=== PATIENT | female | born 1985 | race Caucasian/White ===

== ENCOUNTER 2021-06-29 01:55 | Emergency (ER) | payer MEDICAID ==
[~2021-06-29] VITALS: Ht 157 cm; Wt 57.6 kg
--- OUTSIDE RECORDS SUMMARY | 2021-06-29 02:06 | XMS REPORT | Clinical Summary ---
Author Author [facility] Organization [facility] Address Unknown Phone Unavailable Care Team Providers Care Senior Escrow Officer Name Role Phone PCP Unavailable Allergies Comments Active Allergy Reactions Severity Noted Date Tetracyclines Throat edema High 08/17/2017 Medications End Date Status Medication Sig Dispensed Refills Start Date Active carvedilol (COREG) 12.5 Take 3.125 mg 0 MG tabletIndications: by mouth 2 Takes 3.125mg BID (two) times a day with meals. Active aspirin 81 MG EC Take 81 mg by 0 tabletIndications: mouth daily. myocardial reinfarction prevention Active multivitamin Take 1 tablet 0 with minerals () by mouth 27 mg iron- 800 mcg daily. tabletIndications: Active Problems Not on file Social History Date Tobacco Use Types Packs/Day Years Used Current Every Day Smoker Electronic Cigarettes Smokeless Tobacco: Never Used Comments Alcohol Use Standard Drinks/Week No 0 (1 standard drink = 0.6 o z pure alcohol) Sex Assigned at Date Recorded Not on file Last Filed Vital Signs Reading Time Taken Comments Vital Sign 96/53 08/17/2017 1:31 PM YARN WRAPPER Blood Pressure 81 08/17/2017 4:06 PM YARN WRAPPER Pulse - - Temperature - - Respiratory Rate 95% 08/17/2017 4:06 PM YARN WRAPPER Oxygen Saturation - - Inhaled Oxygen Concentration 65.8 kg (145 lb) 08/17/2017 12:16 PM YARN WRAPPER Weight 158.8 cm (5' 2.5") 08/17/2017 12:13 PM YARN WRAPPER Height 26.1 08/17/2017 12:13 PM YARN WRAPPER Body Mass Index Plan of Treatment Not on file Results Not on filefrom Last 3 Months Insurance Type Payer Benefit Subscriber ID Effective Phone Address Plan / Dates Group MEDICAID MANAGED CARE [employer] [id number] ([place]) STATE -[facility] Areli Esteban Personal/F Self [birth year] [address] (Home) [place] [address] Areli Esteban Personal/F Self [birth year] [address] [place] (Home) [place] [address] Advance Directives For more information, please contact: [phone] 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
--- NOTE | 2021-06-29 02:35 | ED Back Pain ---
General Chief Complaint: Back Problems Stated Complaint: LEFT SIDE OF BACK LOCKED UP Nursing Triage Note: PT PRESENTS TO THE ED C/O L SIDED FLANK/BACK PAIN THAT HAS BEEN OCCURRING TOWARDS THE END OF HER WORK SHIFTS FOR THE LAST FEW NIGHTS. PT STATES IT IS SO DEBILITATING THAT IT AFFECTS HER BALANCE WHEN IT OCCURS. PT HAS A TRAUMATIC BACK FX HX FROM 2001. ALSO HAS KIDNEY STONE HX BUT THIS PAIN DOES NOT FEEL LIKE PREVIOUS STONES Source of Information: Patient Exam Limitations: No Limitations (YOGI KENNEDY STUDENT) History of Present Illness Date Seen by Provider: Jun 29, 2021 Time Seen by Provider: 02:09 Initial Comments This is Areli a 36 yo female that presented to the ED via private vehicle with the chief complaint of lower left sided back pain. She described the pain intense and sharp as if her muscles lock up momentarily causing her to lose function of her left leg. This causes her to fall but she states that her leg "unlocks" and she is able to catch herself. In these moments she describes the pain as a 10/10. 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 These symptoms have occurs for the last 3-4 weeks and have not increased or decreased in frequency or intensity over that time. She stated that she has tried to hide the symptoms from her employer/ fellow employees for fear of losing her job. PMH is significant for a broken back at the levels of L4,L5, and S1 back in 2001 while living in [place]. Pt states that she did PT and trigger point injections but denies back surgery. Pt denies any proceeding trauma or falls. She takes ibuprofen 800mg 3-4 times per day for carpal tunnel syndrome. Location: Lumbar Spine, Other (superior SI joint) Timing/Duration: Constant, Other (3-4 weeks) Severity: Severe Pain/Injury Location: Back, Lower Extremity (lose mobility of left leg) Radiation: Other (to vertebral level) Method of Injury: Unknown Modifying Factors: Improves With Immobilization; Worse With Movement; Improves With Rest Associated Symptoms: muscle spasms, weakness, lower back pain; No loss of bladder control, No loss of bowel control (YOGI KENNEDY MED STUDENT) Allergies and Home Medications Allergies Coded Allergies: codeine (Verified Allergy, Unknown, 06/29/21) hydrocodone (Verified Allergy, Unknown, 06/29/21) latex (Verified Allergy, Unknown, 06/29/21) tetracycline (Verified Allergy, Unknown, 06/29/21) Patient Home Medication List Home Medication List Reviewed: Yes (WALT OROSCO MD) Prednisone (Prednisone) 20 Mg Tab, 40 MG PO DAILY Prescribed by: WALT UMANA on 06/29/21 0306 Review of Systems Constitutional: no symptoms reported EENTM: no symptoms reported Respiratory: no symptoms reported Cardiovascular: no symptoms reported Gastrointestinal: no symptoms reported Genitourinary: no symptoms reported Musculoskeletal: back pain, joint pain, muscle stiffness, muscle weakness (during episodes lasting about 30 seconds) Skin: no symptoms reported Psychiatric/Neurological: No Symptoms Reported (YOGI KENNEDY) Past Qzutwnb-Acrljm-Vgvexa Hx Patient Social History Tobacco Use?: Yes Smoking Status: Former Smoker Use of E-Cig and/or Vaping dev: Yes Substance use?: No Alcohol Use?: No (YOGI KENNEDY) Immunizations Up To Date Influenza Vaccine Up-to-Date: Yes; Up-to-Date (YOGI KENNEDY) Past Medical History Surgery/Hospitalization HX: BACK FX HX. Cardiac Musculoskeletal: Yes Back Injury (YOGI KENNEDY) Physical Exam Vital Signs Vital Signs - First Documented 06/29/21 02:05 Temp 36.5 Pulse 96 Resp 20 B/P (MAP) 137/102 (114) Pulse Ox 99 O2 Delivery Room Air (WALT OROSCO MD) Vital Signs Capillary Refill : Less Than 3 Seconds (YOGI KENNEDY) Height, Weight, BMI Height: '" Weight: lbs. oz. kg; 23.00 BMI Method: General Appearance: WD/WN, Mild Distress HEENT: PERRL/EOMI Neck: Full Range of Motion, Normal Inspection, Non Tender, Supple Cardiovascular: Regular Rate, Rhythm, No Edema, No Gallop, No Murmur, Normal Peripheral Pulses Respiratory: Chest Non Tender, Lungs Clear, Normal Breath Sounds, No Accessory Muscle Use, No Respiratory Distress Gastrointestinal: Non Tender, Soft Back: CVA Tenderness (L), Vertebral Tenderness, Other (SI tenderness) Extremity: Normal Inspection, Non Tender, No Calf Tenderness, No Pedal Edema Neurologic/Psychiatric: Alert, Oriented x3, No Motor/Sensory Deficits, Normal Mood/Affect Skin: Normal Color, Warm/Dry (YOGI KENNEDY MED STUDENT) Progress/Results/Core Measures Results/Orders My Orders Orders - WALT OROSCO MD Prednisone Tablet (Deltasone Tablet) (06/29/21 03:00) (WALT OROSCO MD) Medications Given in ED Current Medications Medications Dose Ordered Sig/Shara Route Start Time Stop Time Status Last Admin Dose Admin Prednisone 40 mg ONCE ONCE PO 06/29/21 03:00 06/29/21 03:03 DC 06/29/21 03:09 40 MG (WALT OROSCO MD) Vital Signs/I&O 06/29/21 06/29/21 02:05 03:11 Temp 36.5 36.5 Pulse 96 96 Resp 20 20 B/P (MAP) 137/102 (114) 137/102 Pulse Ox 99 99 O2 Delivery Room Air Room Air (WALT OROSCO MD) Blood Pressure Mean: 114 Departure Impression Primary Impression: Lumbar radiculopathy Additional Impression: Sacroiliitis Disposition: 01 HOME, SELF-CARE Condition: Stable Departure-Patient Inst. Decision time for Depature: 03:04 (WALT OROSCO MD) Referrals: [facility] (PCP/Family) Primary Care Physician Patient Instructions: Sacroiliac Joint Pain, Radiculopathy Add. Discharge Instructions: Follow-up with your primary care provider soon as possible. Explore options for imaging such as MRI of your lumbar spine. You may continue taking ibuprofen up to 600 mg every 6 hours as needed and/or Tylenol (acetaminophen) up to 1000 mg every 6 hours as needed. Use your prednisone steroids as prescribed. Try to take them early in your waking hours each day with food or milk. This will help reduce sleep disturbance or stomach upset. Return to the emergency room if you have worsening symptoms, especially if you develop true weakness in your legs, groin numbness, or bowel or bladder function problems. Call if you have questions or concerns. All discharge instructions reviewed with patient and/or family. Voiced understanding. Scripts Prednisone (Prednisone) 20 Mg Tab 40 MG PO DAILY, #8 TAB 0 Refills Prov: WALT OROSCO MD 06/29/21 Medical Student Attestation and Attending Note: I have personally interviewed and examined this patient along with Yogi York, MS4. I have reviewed student documentation including history, physical, and assessments. I agree with the documentation except where otherwise noted. Exam: General: Alert, oriented, no acute distress, well developed HEENT: Normocephalic and atraumatic Heart: Regular rate and rhythm without murmur Lungs: Clear to auscultation bilaterally with normal effort Abdomen: Soft, nontender, nondistended, normal bowel sounds Back: Maximal point tenderness along the superior aspect of left SI joint. Neuropsych: Alert, oriented, no focal deficits Skin: Warm and dry without rashes Patient was offered prednisone therapy which she accepted. I have recommended that she follow-up with her primary care provider to discuss further work-up and treatment which might include MRI of the lumbar spine, especially since she has prior trauma in that region. (WALT OROSCO MD) Copy Copies To 1: JACKIE MCKEON DYLAN MED STUDENT Jun 29, 2021 02:35 WALT OROSCO MD Jun 29, 2021 03:07
[2021-06-29] MEDS ORDERED: predniSONE 20 MG TAB PO ONE (03:00)
[2021-06-29] MEDS ORDERED: PRD20T PO (03:06)
[2021-06-29 03:11] VITALS: BP 137/102
== END 2021-06-29 03:11 | disposition home or self-care (01) ==
LOC: ER 02:02
DX: M54.16 Radiculopathy, lumbar region (principal); M46.1 Sacroiliitis, not elsewhere classified; Z87.891 Personal history of nicotine dependence
CPT/HCPCS: 99283

== ENCOUNTER 2022-02-01 13:13 | Emergency (ER) | payer MEDICAID ==
[~2022-02-01] VITALS: Ht 157.5 cm; Wt 58.1 kg
[~2022-02-01 13:13] MED LIST: PRD20T PO
--- NOTE | 2022-02-01 13:38 | ED Upper Extremity ---
General Stated Complaint: RT FINGER INJ Source: patient Exam Limitations: no limitations History of Present Illness Date Seen by Provider: February 01, 2022 Time Seen by Provider: 13:18 Initial Comments Patient to the ER by private conveyance with her son and chief complaint that 3 days ago she jammed her finger third digit on her right hand while roughhousing with her child. She says has been using ice and ibuprofen and now has 8 out of 10 pain and swelling in her third finger middle interphalangeal joint. No loss of sensation. No previous fracture or injury. No surgeries on her hand. Allergies and Home Medications Allergies Coded Allergies: codeine (Verified Allergy, Unknown, 06/29/21) hydrocodone (Verified Allergy, Unknown, 06/29/21) latex (Verified Allergy, Unknown, 06/29/21) tetracycline (Verified Allergy, Unknown, 06/29/21) Patient Home Medication List Home Medication List Reviewed: Yes Prednisone (Prednisone) 20 Mg Tab, 40 MG PO DAILY Prescribed by: WALT UMANA on 06/29/21 0306 Review of Systems Constitutional: No chills, No diaphoresis EENTM: No ear discharge, No ear pain Respiratory: No cough, No short of breath Cardiovascular: No edema, No palpitations All Other Systems Reviewed Negative Unless Noted: Yes Past Wdpfpvl-Zutspo-Bpzxgv Hx Patient Social History Tobacco Use?: Yes Tobacco type used: Cigarettes Use of E-Cig and/or Vaping dev: No Substance use?: No Past Medical History Surgery/Hospitalization HX: BACK FX HX. Cardiac Musculoskeletal: Yes Back Injury Physical Exam Vital Signs Vital Signs - First Documented 02/01/22 13:20 Temp 36.4 Pulse 78 Resp 19 B/P (MAP) 120/102 (108) O2 Delivery Room Air Capillary Refill : Height, Weight, BMI Height: '" Weight: lbs. oz. kg; 23.00 BMI Method: General Appearance: WD/WN, no apparent distress HEENT: PERRL/EOMI, pharynx normal Cardiovascular: normal peripheral pulses, regular rate, rhythm Respiratory: no respiratory distress, no accessory muscle use Wrist: Yes normal inspection, Yes non-tender, Yes no evidence of injury, Yes normal ROM Hand: Right, swelling (Middle interphalangeal joint has some swelling on the right hand, third digit with limited flexion and nearly complete extension. No crepitus palpable. No other deformity noted. No tenderness to the metacarpals or other digits) Progress/Results/Core Measures Results/Orders My Orders Orders - BRAYDEN JOHNSTON Hand 3 View Right (02/01/22 13:22) Vital Signs/I&O 02/01/22 13:20 Temp 36.4 Pulse 78 Resp 19 B/P (MAP) 120/102 (108) O2 Delivery Room Air Progress Progress Note : Time: 13:27 Progress Note Jammed finger versus fracture versus sprain/strain of the MIP joint. Plain films. Diagnostic Imaging Diagonstic Imaging: Xray Plain Films/CT/US/NM/MRI: other (finger) Comments [facility] [place], [place] NAME: MASOOD CASTILLO [facility] REC#: [id number] PT STATUS: REG ER : 1985 PHYSICIAN: BRAYDEN JOHNSTON MD ADMIT DATE: 02/01/22/ER FS Draft Date of Exam:02/01/22 HAND 3 VIEW RIGHT HISTORY: Right hand injury, 3rd proximal interphalangeal joint swelling, trauma. COMPARISON: None TECHNIQUE: 3 views of the right hand FINDINGS: There is subtle linear lucency at the right 3rd finger middle phalangeal base which is seen in the lateral view only. This could represent a nondisplaced fracture. There is surrounding soft tissue swelling. Alignment otherwise appears normal and no other fractures are seen. Joint spaces are generally preserved. IMPRESSION:. Subtle linear lucency at the right 3rd finger middle phalangeal base may represent a nondisplaced fracture. Dictated on workstation # [id number] Dict: 02/01/22 1347 Trans: 02/01/22 1349 [facility] [id number] Interpreted by: TAPAN CANALES MD Electronically signed by: Reviewed: Reviewed by Me Departure Impression Primary Impression: Jammed interphalangeal joint of finger of right hand Qualified Codes: S69.91XA - Unspecified injury of right wrist, hand and finger(s), initial encounter Additional Impression: Finger fracture, right Qualified Codes: S62.652A - Nondisplaced fracture of middle phalanx of right middle finger, initial encounter for closed fracture Disposition: 01 HOME, SELF-CARE Condition: Stable Departure-Patient Inst. Decision time for Depature: 13:40 Referrals: [facility] (PCP) Primary Care Physician MARY WARREN DO Patient Instructions: Jammed Finger (DC), Finger Fracture (DC) Add. Discharge Instructions: Heat and topical creams can be helpful for pain relief. Feroz tape your injured finger to the fingers next to it to help splint the finger for the next week or 2. Tylenol 1000 mg every 8 hours as needed for pain. Ibuprofen 800 mg every 8 hours needed for pain. Follow-up with Dr. WARREN, hand surgeon or follow-up with your primary doctor if you are having significant pain or still unable to bend or straighten your finger completely in 1 to 2 weeks. Work/School Note: Work Release Form Date Seen in the Emergency Department: January 31, 2022 Return to Work: February 02, 2022 Restrictions: Need Release from Doctor Other Restrictions Listed Below: Limit use of the fingers of the right hand until 02/13/2022. Copy Copies To 1: [facility]ARREN [facility] February 01, 2022 13:37
--- NOTE | 2022-02-01 13:50 | Diagnostic Imaging Report ---
HISTORY: Right hand injury, 3rd proximal interphalangeal joint swelling, trauma. COMPARISON: None TECHNIQUE: 3 views of the right hand FINDINGS: There is subtle linear lucency at the right 3rd finger middle phalangeal base which is seen in the lateral view only. This could represent a nondisplaced fracture. There is surrounding soft tissue swelling. Alignment otherwise appears normal and no other fractures are seen. Joint spaces are generally preserved. IMPRESSION:. Subtle linear lucency at the right 3rd finger middle phalangeal base may represent a nondisplaced fracture. Dictated by: Dictated on workstation # [id number]
[2022-02-01 14:06] VITALS: BP 136/76
== END 2022-02-01 14:06 | disposition home or self-care (01) ==
LOC: EDUNIT# 13:13 → ER FS 13:14
DX: S62.652A Nondisplaced fracture of middle phalanx of right middle finger, initial encounter for closed fracture (principal); Z87.81 Personal history of (healed) traumatic fracture; X58.XXXA Exposure to other specified factors, initial encounter; Y93.83 Activity, rough housing and horseplay
CPT/HCPCS: 73130

== ENCOUNTER 2022-03-23 19:45 | Emergency (ER) | payer MEDICAID ==
[~2022-03-23] VITALS: Ht 157.4 cm; Wt 57.1 kg
[2022-03-23 19:46] VITALS: BP 130/83
--- NOTE | 2022-03-23 20:04 | ED Upper Extremity ---
General Chief Complaint: Upper Extremity Stated Complaint: R MIDDLE FINGER PAIN Nursing Triage Note: Patient states that she had previously broken her right middle finger. Patient states she hit it on a cart and reinjured it last night. Patient has swelling to the right middle finger. History of Present Illness Date Seen by Provider: Mar 23, 2022 Time Seen by Provider: 20:04 Initial Comments 37-year-old female presents with injury to her the proximal aspect of the right middle finger. Patient reports that she hit somehow on a cart last night and reinjured it. She has some swelling to the proximal portion of it and the concern she may have rebroken it. She reports that she had previously broken it and wanted to have it reevaluated. She has full but painful range of motion. She has no other injuries Allergies and Home Medications Allergies Coded Allergies: codeine (Verified Allergy, Unknown, 06/29/21) hydrocodone (Verified Allergy, Unknown, 06/29/21) latex (Verified Allergy, Unknown, 06/29/21) tetracycline (Verified Allergy, Unknown, 06/29/21) Patient Home Medication List Home Medication List Reviewed: Yes Prednisone (Prednisone) 20 Mg Tab, 40 MG PO DAILY Prescribed by: WALT UMANA on 06/29/21 0306 Review of Systems Constitutional: No chills, No fever Respiratory: no symptoms reported Cardiovascular: no symptoms reported Gastrointestinal: no symptoms reported Genitourinary: no symptoms reported Musculoskeletal: see HPI Skin: see HPI Psychiatric/Neurological: No Symptoms Reported Past Rgtyguf-Khhetp-Euqsdc Hx Patient Social History Tobacco Use?: No Use of E-Cig and/or Vaping dev: Yes E-Cig or Vaping type used: Nicotine Use of E-Cig and/or Vaping Chris: Current Everyday User Substance use?: No Alcohol Use?: No Pt feels they are or have been: No Past Medical History Surgery/Hospitalization HX: BACK FX HX. Cardiac Musculoskeletal: Yes Back Injury Physical Exam Vital Signs Vital Signs - First Documented 03/23/22 19:46 Temp 37.0 Pulse 56 Resp 16 B/P (MAP) 130/83 (99) Pulse Ox 100 O2 Delivery Room Air Capillary Refill : Less Than 3 Seconds Height, Weight, BMI Height: '" Weight: lbs. oz. kg; 23.00 BMI Method: General Appearance: WD/WN, no apparent distress Cardiovascular: normal peripheral pulses, regular rate, rhythm Respiratory: chest non-tender, lungs clear Gastrointestinal: No distended Shoulder: normal inspection Elbow/Forearm: normal inspection Wrist: Yes normal inspection Hand: Right, soft tissue tenderness, swelling (Proximal aspect right middle finger) Neurologic/Tendon: normal sensation Neurologic/Psychiatric: alert, normal mood/affect, oriented x 3 Skin: tattoos/piercings Progress/Results/Core Measures Results/Orders My Orders Orders - JACKSON HORAN DO Finger(S) (03/23/22 19:51) Vital Signs/I&O 03/23/22 19:46 Temp 37.0 Pulse 56 Resp 16 B/P (MAP) 130/83 (99) Pulse Ox 100 O2 Delivery Room Air Blood Pressure Mean: 99 Progress Progress Note : Progress Note Patient with no acute fracture noted on x-ray. Discussed with her supportive care. Patient stable and discharged home Diagnostic Imaging Diagonstic Imaging: Xray Plain Films/CT/US/NM/MRI: other (Right hand) Comments No acute fracture or dislocation noted Departure Impression Primary Impression: Contusion of finger of right hand Qualified Codes: S60.031A - Contusion of right middle finger without damage to nail, initial encounter Disposition: HOME, SELF-CARE Condition: Stable Departure-Patient Inst. Referrals: [facility] (PCP/Family) Primary Care Physician Patient Instructions: Minor Contusion ED, Common Finger Injuries Add. Discharge Instructions: Follow-up with your primary care provider as needed if symptoms or not improving in 7 to 10 days All discharge instructions reviewed with patient and/or family. Voiced understanding. Work/School Note: Work Release Form Date Seen in the Emergency Department: Mar 23, 2022 Return to Work: Mar 24, 2022 Restrictions: No Restrictions JACKSON HORAN DO Mar 23, 2022 20:04
--- NOTE | 2022-03-23 20:14 | Diagnostic Imaging Report ---
INDICATION: Pain in right 3rd finger, history of previous fracture. Comparison made with 02/01/2022. No acute fracture or acute bony abnormality seen. The fracture in question on the prior study appears to have healed on today's study. Joint spaces are in good alignment. IMPRESSION: Negative right fingers. Dictated by: Dictated on workstation # [id number]
== END 2022-03-23 20:19 | disposition home or self-care (01) ==
LOC: EDUNIT# 19:45 → ER FS 19:46
DX: S60.031A Contusion of right middle finger without damage to nail, initial encounter (principal); F17.290 Nicotine dependence, other tobacco product, uncomplicated; Z87.81 Personal history of (healed) traumatic fracture; Z28.310 Unvaccinated for COVID-19; W22.8XXA Striking against or struck by other objects, initial encounter
CPT/HCPCS: 73140

== ENCOUNTER 2022-07-09 16:55 | Emergency (ER) | payer MEDICAID ==
[~2022-07-09] VITALS: Ht 157.4 cm; Wt 57.1 kg
--- NOTE | 2022-07-09 17:28 | ED Abdominal Pain ---
General Chief Complaint: Abdominal/GI Problems Stated Complaint: ABD PAIN History of Present Illness Date Seen by Provider: Jul 09, 2022 Time Seen by Provider: 17:24 Initial Comments 37-year-old female here with complaints of constipation. Patient states that she has not gone to the had a bowel movement about 2 weeks she has tried multiple laxatives [id number] and has not had any luck with those. Patient is having abdominal pain that is in the little river around her umbilicus. No fever chills. Is nauseous and will vomit if she eats. No fever. No difficulty with urination. She is thinks it may hurt more when she does go urinate. Allergies and Home Medications Allergies Coded Allergies: codeine (Verified Allergy, Unknown, 06/29/21) hydrocodone (Verified Allergy, Unknown, 06/29/21) latex (Verified Allergy, Unknown, 06/29/21) tetracycline (Verified Allergy, Unknown, 06/29/21) Patient Home Medication List Home Medication List Reviewed: Yes Lactulose (Lactulose) 10 Gram Packet, 10 GM PO DAILY Prescribed by: Guido Bailey on 07/09/221807 Prednisone (Prednisone) 20 Mg Tab, 40 MG PO DAILY Prescribed by: WALT UMANA on 06/29/21 0306 Review of Systems Review of Systems Constitutional: see HPI Past Oedluey-Jcdizd-Grdicq Hx Patient Social History Tobacco Use?: No Pt feels they are or have been: No Past Medical History Surgery/Hospitalization HX: BACK FX HX. Cardiac Musculoskeletal: Yes Back Injury Physical Exam Vital Signs Vital Signs - First Documented 07/09/22 17:17 Temp 36.1 Pulse 66 Resp 16 B/P (MAP) 147/86 (106) Pulse Ox 97 O2 Delivery Room Air Capillary Refill : Height/Weight/BMI Height: '" Weight: lbs. oz. kg; 23.00 BMI Method: General Appearance: WD/WN, no apparent distress HEENT: PERRL/EOMI Neck: normal inspection Gastrointestinal: abnormal bowel sounds (decreased bowel sounds), tenderness (around umbilicus) Skin: normal color, warm/dry Progress/Results/Core Measures Results/Orders My Orders Orders - GUIDO BAILEY MD Abdomen (Kub) 1 View (07/09/22 17:23) Vital Signs/I&O 07/09/22 07/09/22 17:17 18:13 Temp 36.1 36.1 Pulse 66 67 Resp 16 16 B/P (MAP) 147/86 (106) 142/86 Pulse Ox 97 97 O2 Delivery Room Air Room Air Progress Progress Note : Time: 18:02 Progress Note Discussed with patient x-ray results. Patient has done MiraLAX docusate Milk of mag mag citrate. She did buy an enema but has not tried that. Would recommend doing that. Patient does not want to do that here so she can go home and do that. We will also send some lactulose and Diagnostic Imaging Diagonstic Imaging: Xray Plain Films/CT/US/NM/MRI: abdomen Comments [place], [place] NAME: MASOOD CASTILLO [facility] REC#: [id number] PT STATUS: DEP ER : 1985 PHYSICIAN: GUIDO BAILEY MD ADMIT DATE: 07/09/22/ER FS Signed Date of Exam:07/09/22 ABDOMEN (KUB) 1 VIEW EXAMINATION: Abdomen 1 view. HISTORY: Abdominal pain. COMPARISON: None available. FINDINGS: Large amount of stool is present in the colon. No dilated bowel or free air. IMPRESSION: Large-volume stool in the colon. Dictated by: Dictated on workstation # [id number] Dict: 07/09/221749 Trans: 07/09/221940 [facility] [id number] Interpreted by: LUISA COLLINS MD Electronically signed by: LUISA COLLINS MD 07/09/221940 Departure Impression Primary Impression: Constipation Disposition: 01 HOME, SELF-CARE Condition: Stable Departure-Patient Inst. Decision time for Depature: 18:04 Referrals: [facility] (PCP/Family) Primary Care Physician Patient Instructions: Constipation, Adult (DC) Add. Discharge Instructions: Use enema. We will send in lactulose. If not better see primary care All discharge instructions reviewed with patient and/or family. Voiced understanding. Scripts Lactulose (Lactulose) 10 Gram Packet 10 GM PO DAILY for 5 Days, #5 PACKET 0 Refills Prov: GUIDO BAILEY MD 07/09/22 GUIDO BAILEY MD Jul 09, 2022 17:28
--- NOTE | 2022-07-09 17:53 | Diagnostic Imaging Report ---
EXAMINATION: Abdomen 1 view. HISTORY: Abdominal pain. COMPARISON: None available. FINDINGS: Large amount of stool is present in the colon. No dilated bowel or free air. IMPRESSION: Large-volume stool in the colon. Dictated by: Dictated on workstation # [id number]
[2022-07-09] MEDS ORDERED: LACT10PA3 PO (18:08)
[2022-07-09 18:13] VITALS: BP 142/86
== END 2022-07-09 18:13 | disposition home or self-care (01) ==
LOC: EDUNIT# 16:55 → ER FS 16:56
DX: K59.00 Constipation, unspecified (principal); Z91.040 Latex allergy status; Z28.310 Unvaccinated for COVID-19
CPT/HCPCS: 74018

== ENCOUNTER 2022-07-29 12:33 | Emergency (ER) | payer MEDICAID ==
[~2022-07-29 12:33] MED LIST changes: +LACT10PA3 PO
--- NOTE | 2022-07-29 13:20 | ED Cough/URI ---
General Chief Complaint: Cough/Cold/Flu Symptoms Stated Complaint: COUGH/VOMITING/FEVER Nursing Triage Note: PT AMB TO RM 9 WITH DAUGHTER WITH C/O FEVER, COUGH, CONGESTION X3 DAYS Source: patient Exam Limitations: no limitations History of Present Illness Date Seen by Provider: Jul 29, 2022 Time Seen by Provider: 13:15 Initial Comments Patient is a 37-year-old female who presents to the emergency department for evaluation of 3 to 4 days of cough, nasal congestion, and general malaise. Patient states she had a fever for a few days but has been fever free today. Ciara call's daughter is also being seen here today for similar symptoms. Patient's younger son recently tested positive for RSV. Patient has had no medications for the symptoms today. Patient denies any chest pain, shortness of air, or abdominal pain. Allergies and Home Medications Allergies Coded Allergies: codeine (Verified Allergy, Unknown, 06/29/21) hydrocodone (Verified Allergy, Unknown, 06/29/21) latex (Verified Allergy, Unknown, 06/29/21) tetracycline (Verified Allergy, Unknown, 06/29/21) Patient Home Medication List Home Medication List Reviewed: Yes Benzonatate (Tessalon Perles) 100 Mg Capsule, 100 MG PO TID PRN for COUGH Prescribed by: Ben Brand on 07/29/22 1422 Lactulose (Lactulose) 10 Gram Packet, 10 GM PO DAILY Prescribed by: Guido Kim on 07/09/22 1808 Prednisone (Prednisone) 20 Mg Tab, 40 MG PO DAILY Prescribed by: WALT UMANA on 06/29/21 0306 Review of Systems Review of Systems Constitutional: see HPI EENTM: see HPI Respiratory: see HPI Cardiovascular: no symptoms reported Gastrointestinal: no symptoms reported Genitourinary: no symptoms reported Past Pkwrvxt-[place]-Actybe Hx Past Medical History Surgery/Hospitalization HX: BACK FX HX. Cardiac Musculoskeletal: Yes Back Injury Physical Exam Vital Signs - First Documented 07/29/22 07/29/22 12:50 14:20 Temp 36.7 Pulse 77 Resp 16 B/P (MAP) 113/87 (96) Pulse Ox 98 O2 Delivery Room Air Capillary Refill : Height: '" Weight: lbs. oz. kg; 23.00 BMI Method: General Appearance: WD/WN, no apparent distress HEENT: PERRL/EOMI, normal ENT inspection, TMs normal, pharynx normal Neck: non-tender, full range of motion, supple, normal inspection Respiratory: chest non-tender, lungs clear, normal breath sounds, no respiratory distress, no accessory muscle use Cardiovascular: regular rate, rhythm Gastrointestinal: normal bowel sounds, non tender, soft Extremities: normal range of motion, non-tender, normal inspection Neurologic/Psychiatric: no motor/sensory deficits, alert, normal mood/affect, o riented x 3 Skin: normal color, warm/dry Progress/Results/Core Measures Suspected Sepsis SIRS Temperature: Pulse: 77 Respiratory Rate: 16 Blood Pressure 113 /87 Mean: 96 Results/Orders Lab Results Laboratory Tests Test 07/29/22 13:00 Range/Units Influenza Type A (RT-PCR) Not Detected Not Detecte Influenza Type B (RT-PCR) Not Detected Not Detecte SARS-CoV-2 RNA (RT-PCR) Detected H Not Detecte My Orders Orders - BEN BRAND APRN Covid 19 Inhouse Test (07/29/22 13:16) Influenza A And B By Pcr (07/29/22 13:16) Isolation Central Supply Req (07/29/22 13:16) Vital Signs/I&O 07/29/22 07/29/22 12:50 14:20 Temp 36.7 36.7 Pulse 77 75 Resp 16 18 B/P (MAP) 113/87 (96) 122/82 Pulse Ox 98 O2 Delivery Room Air Capillary Refill : Blood Pressure Mean: 96 Progress Note : Progress Note Patient is nontoxic and well-hydrated on exam. No adventitious lung sounds or increased work of breathing noted. Vital signs are reassuring. No nuchal rigidity appreciated. Abdominal exam is reassuring. No obvious nidus of b acterial infection noted on exam. COVID test positive. Patient has not been immunized for flu or COVID. Will discharge home with recommendations for supportive care and close follow-up with PCP. Return precautions for urgent symptomology discussed. Patient verbalized understanding. Departure Impression Primary Impression: COVID-19 Disposition: 01 HOME, SELF-CARE Condition: Stable Departure-Patient Inst. Decision time for Depature: 14:15 Referrals: [facility] (PCP/Family) Primary Care Physician Patient Instructions: COVID-19 (DC) Scripts Benzonatate (TESSALON PERLES) 100 Mg Capsule 100 MG PO TID PRN for COUGH for 7 Days, #21 CAP 0 Refills Prov: BEN BRAND APRN 07/29/22 BEN BRAND APRN Jul 29, 2022 13:19
[2022-07-29 14:20] VITALS: BP 122/82
[2022-07-29] MEDS ORDERED: BENZ100C18 PO (14:22)
== END 2022-07-29 14:20 | disposition home or self-care (01) ==
LOC: EDUNIT# 12:33 → ER 12:35
DX: U07.1 COVID-19 (principal); Z91.040 Latex allergy status; Z28.310 Unvaccinated for COVID-19
CPT/HCPCS: 87636; 99283